=== PATIENT | male | born 1950 | race Caucasian/White ===

== ENCOUNTER 2017-05-07 22:21 | Emergency (ER) | payer OTHER ==
[~2017-05-07] VITALS: Ht 172.7 cm; Wt 78.9 kg
[2017-05-07 22:46] LABS: PATH.CAST-FLAG NOT PRESENT; SPERM-FLAG NOT PRESENT; SRC-FLAG NOT PRESENT; XTAL-FLAG NOT PRESENT; YLC-FLAG NOT PRESENT
[2017-05-07] MEDS ORDERED: SODIUM CHLORIDE FLUSH 10ML SYR IVF ONE (23:00)
[2017-05-07] MEDS ORDERED: MORPHINE SULFATE 4 MG/ML, 1ML IVPush PRN (23:00)
[2017-05-07] MEDS ORDERED: SODIUM CHLORIDE 0.9% 1,000ML IV ONE (23:00)
[2017-05-07] MEDS ORDERED: ONDANSETRON 2MG/ML, 2ML IVPush ONE (23:00)
[2017-05-07 23:03] LABS: HEMATOCRIT 46.9 % (39.2-51.8); HEMOGLOBIN 16.3 g/dL (13.7-18.0); WHITE BLOOD COUNT 8.3 x10^3/uL (3.4-10)
[2017-05-07] MEDS ORDERED: ONDANSETRON 2MG/ML, 2ML ONE (23:04)
[2017-05-07] MEDS ORDERED: morphine SULFATE 10 MG/ML, 1ML ONE (23:04)
[2017-05-07 23:12] LABS: BLOOD UREA NITROGEN 19 mg/dL (7-18)
[2017-05-07 23:51] VITALS: BP 131/77
== END 2017-05-08 00:08 | disposition home or self-care (01) ==
LOC: ED 22:49
DX: N13.2 Hydronephrosis with renal and ureteral calculous obstruction (principal); R31.9 Hematuria, unspecified
CPT/HCPCS: 36415; 74176; 80048; 81001; 82040; 85025; 99285

== ENCOUNTER → 2017-05-10 | Outpatient (CLI) | payer OTHER | END | disposition home or self-care (01) | LOC: CFH 10:43 | PROVIDERS: ATTEND Physician Assistant Surgical | DX: N20.1 Calculus of ureter (principal); I87.8 Other specified disorders of veins | CPT/HCPCS: 74000 ==

== ENCOUNTER → 2017-05-30 | Outpatient (CLI) | payer OTHER | END | disposition home or self-care (01) | LOC: CFH 11:51 | PROVIDERS: ATTEND Physician Assistant Surgical | DX: I87.8 Other specified disorders of veins (principal) | CPT/HCPCS: 74000 ==